=== PATIENT | male | born 1980 | race African-American/Black ===

== ENCOUNTER 2023-10-14 12:02 | Emergency (ER) | payer SELFPAY ==
[~2023-10-14] VITALS: Ht 180.3 cm; Wt 93.0 kg
[2023-10-14 12:04] VITALS: BP 160/133; PULSE 59; RESP 15; TEMP 98.5; O2SAT 97
== END 2023-10-14 12:42 | disposition home or self-care (01) ==
LOC: MED 12:02
DX: Z00.00 Encounter for general adult medical examination without abnormal findings (principal); I10 Essential (primary) hypertension
CPT/HCPCS: 99281